=== PATIENT | female | born 1995 | race Two or more races ===

== ENCOUNTER 2020-08-12 13:19 | Emergency (ER) | payer OTHER ==
[~2020-08-12] VITALS: Ht 165.1 cm; Wt 89.4 kg
[2020-08-12] MEDS ORDERED: ZOFRAN4 MG PO (18:12)
[2020-08-12] MEDS ORDERED: VITAMIN B-650 M1 PO (18:12)
[2020-08-12] MEDS ORDERED: UNISOM25 MG PO (18:12)
[2020-09-29] MEDS ORDERED: ANTACID ANTI-G355 M1 (11:14)
== END 2020-08-12 18:21 | disposition home or self-care (01) ==
LOC: ER 13:19
DX: O21.1 Hyperemesis gravidarum with metabolic disturbance (principal); Z34.01 Encounter for supervision of normal first pregnancy, first trimester

== ENCOUNTER 2020-11-27 14:17 | Outpatient (CLI) | payer OTHER ==
[~2020-11-27 14:17] MED LIST: ANTACID ANTI-G355 M1; UNISOM25 MG PO; VITAMIN B-650 M1 PO; ZOFRAN4 MG PO
== END 2020-11-27 15:40 | disposition home or self-care (01) ==
LOC: PRENATAL 14:17
PROVIDERS: ATTEND Obstetrics & Gynecology Maternal & Fetal Medicine
DX: O35.0XX1 Maternal care for (suspected) central nervous system malformation in fetus, fetus 1 (principal); O35.3XX1 Maternal care for (suspected) damage to fetus from viral disease in mother, fetus 1; O98.512 Other viral diseases complicating pregnancy, second trimester; O99.891 Other specified diseases and conditions complicating pregnancy; Z36.89 Encounter for other specified antenatal screening; Z3A.22 22 weeks gestation of pregnancy

== ENCOUNTER 2021-03-22 13:15 | Inpatient (IN) | payer OTHER ==
[~2021-03-22] VITALS: Ht 165.1 cm; Wt 113.4 kg
[2021-04-06] MEDS ORDERED: KEFLEX750 MG PO (18:12)
== END 2021-04-06 17:56 | disposition home or self-care (01) | DRG 807 ==
LOC: LDR 03-25 13:15 → OB/GYN 04-04 03:01 → LDR 04-04 03:01 → OB/GYN 04-04 17:38
PROVIDERS: ADMIT Obstetrics & Gynecology; ATTEND Obstetrics & Gynecology
PROC: 10E0XZZ Delivery of Products of Conception, External Approach (ICD-10-PCS; principal; 2021-04-04)
PROC: 0KQM0ZZ Repair Perineum Muscle, Open Approach (ICD-10-PCS; 2021-04-04)
PROC: 4A1HXCZ Monitoring of Products of Conception, Cardiac Rate, External Approach (ICD-10-PCS; 2021-04-04)
PROC: 0W8NXZZ Division of Female Perineum, External Approach (ICD-10-PCS; 2021-04-04)
DX: O70.1 Second degree perineal laceration during delivery (principal); Z37.0 Single live birth; Z3A.40 40 weeks gestation of pregnancy; Z20.822 Contact with and (suspected) exposure to COVID-19

== ENCOUNTER 2021-11-28 12:11 | Emergency (ER) | payer OTHER ==
[~2021-11-28] VITALS: Ht 165.1 cm; Wt 85.7 kg
[~2021-11-28 12:11] MED LIST changes: +KEFLEX750 MG PO
== END 2021-11-28 16:54 | disposition home or self-care (01) ==
LOC: ER 12:11
DX: O21.8 Other vomiting complicating pregnancy (principal); O23.40 Unspecified infection of urinary tract in pregnancy, unspecified trimester; N39.0 Urinary tract infection, site not specified; Z3A.00 Weeks of gestation of pregnancy not specified; Z20.822 Contact with and (suspected) exposure to COVID-19

== ENCOUNTER 2022-02-04 14:13 | Outpatient (CLI) | payer OTHER | END 2022-02-04 15:27 | disposition home or self-care (01) | LOC: PRENATAL 14:13 | PROVIDERS: ATTEND Obstetrics & Gynecology Maternal & Fetal Medicine | DX: O35.3XX0 Maternal care for (suspected) damage to fetus from viral disease in mother, not applicable or unspecified (principal); Z3A.20 20 weeks gestation of pregnancy ==

== ENCOUNTER 2022-04-25 13:53 | Outpatient (CLI) | payer OTHER | END 2022-04-25 16:20 | disposition home or self-care (01) | LOC: PRENATAL 13:53 | PROVIDERS: ATTEND Obstetrics & Gynecology Maternal & Fetal Medicine | DX: O26.849 Uterine size-date discrepancy, unspecified trimester (principal); O36.8199 Decreased fetal movements, unspecified trimester, other fetus; O99.280 Endocrine, nutritional and metabolic diseases complicating pregnancy, unspecified trimester; Z3A.32 32 weeks gestation of pregnancy ==

== ENCOUNTER 2022-05-11 21:29 | Inpatient (IN) | payer OTHER ==
[~2022-05-11] VITALS: Ht 165.1 cm; Wt 1.8 kg
[2022-05-11] MEDS ORDERED: PRENATAL CAPLE1 EAC1 PO (22:00)
[2022-05-11] MEDS ORDERED: METHIMAZOLE10 MG (23:26)
== END 2022-05-15 15:59 | DRG 807 ==
LOC: OB/GYN 21:29 → LDR 21:29 → OB/GYN 05-12 02:50
PROVIDERS: ADMIT Obstetrics & Gynecology; ATTEND Obstetrics & Gynecology
PROC: BY4FZZZ Ultrasonography of Third Trimester, Single Fetus (ICD-10-PCS; 2022-05-11)
PROC: 4A1HXCZ Monitoring of Products of Conception, Cardiac Rate, External Approach (ICD-10-PCS; 2022-05-11)
PROC: 10E0XZZ Delivery of Products of Conception, External Approach (ICD-10-PCS; principal; 2022-05-12)
PROC: 0HQ9XZZ Repair Perineum Skin, External Approach (ICD-10-PCS; 2022-05-12)
DX: O70.0 First degree perineal laceration during delivery (principal); Z37.0 Single live birth; O42.013 Preterm premature rupture of membranes, onset of labor within 24 hours of rupture, third trimester; Z3A.34 34 weeks gestation of pregnancy; Z20.822 Contact with and (suspected) exposure to COVID-19